=== PATIENT | female | born 1955 | race Caucasian/White ===

== ENCOUNTER → 2017-08-28 | Outpatient (CLI) | payer OTHER ==
[~2017-08-28] MED LIST: ACE3 PO; ACET-1718 PO; ASP325 PO; ASPI-1 PO; CALC600T72 PO; CELE-1 PO; CLOB15CR22 TP; FISH OIL 1,2001 CAP PO; MECL25TA9 PO; METO25TA23 PO; METO50TA19 PO; ONDA4TAB PO; VITAMINS; [UNRECOGNIZED DRUG - OTHER]
--- NOTE | 2017-08-28 13:49 | RADIOLOGY IMAGING REPORT ---
FACILITY: [facility] PATIENT NAME: FEDERICO GIORDANO : [id number] MR: [id number] V: [id number] EXAM DATE: [id number] ORDERING PHYSICIAN: ERIC ALEXANDER TECHNOLOGIST: Becky Ramirez PROCEDURE:BILATERAL DIGITAL SCREENING MAMMOGRAM WITH CAD ASSISTED INTERPRETATION & 3D TOMOSYNTHESIS COMPARISON:Prior mammograms 08/25/16, 08/25/15. INDICATIONS:SCREENING FINDINGS: The breast tissue is heterogeneously dense. There is no dominant mass, suspicious cluster of microcalcifications or persistent areas of architectural distortion. DIAGNOSTIC CATEGORY 1--NEGATIVE. RECOMMENDATIONS: ROUTINE MAMMOGRAM AND CLINICAL EVALUATION IN 1 YEAR. IMPRESSION: BIRADS 1: Negative. Dictated by: Remington Carlos M.D. on 08/28/2017 at 11:47 Transcribed by: LATESHA on 08/28/2017 at 13:00 Approved by: Remington Carlos M.D. on 08/28/2017 at 13:48 [facility]
== END ==
LOC: MAMO 01:47
PROVIDERS: ATTEND Physician Assistant
DX: Z12.31 Encounter for screening mammogram for malignant neoplasm of breast (principal)
CPT/HCPCS: 77063; 77067

== ENCOUNTER → 2017-10-17 | Outpatient (CLI) | payer OTHER ==
--- NOTE | 2017-10-17 11:19 | RADIOLOGY IMAGING REPORT ---
FACILITY: [facility] [place] PATIENT NAME: Radha Lester : 1955 MR: [id number] V: [id number] EXAM DATE: ORDERING PHYSICIAN: ERIC ALEXANDER TECHNOLOGIST: Location: [facility] Patient: Radha Lester : 1955 Visit/Account:[id number] Date of Sevice: 10/17/2017 DEXA Scan Clinical history: Postmenopausal. Comparison: None available. LUMBAR SPINE: The bone mineral density (BMD) measured from L1-L4 correlates with a Z-score 0.4 and a T-score of -1 which is Normal as defined by the World Health Organization. The corresponding risk of fracture in t he lumbar spine is 2 times increased compared with a young adult reference population. HIP: Bone mineral density (BMD) measured in the Left total hip region correlates with a Z-score -1 and a T -score of -2.1 which is osteopenia as defined by the World Health Organization. The corresponding ri sk of fracture in the hip is 4-6 times increased compared with a young adult reference population. T score left femoral neck -2.1 Bone mineral density (BMD) measured in the Femoral Neck region measures 0.753 g/cm2. Impression: 1. Lumbar spine: Normal. 2. Left Hip: Stepanian. 3. Femoral Neck: Bone Mineral Density is 0.753 g/cm2 The next DEXA scan of this patient should include the following sites: L1-L4 and the left hip. FRAX? WHO Fracture Risk Assessment Tool link: <http://www.shef.ac.uk/FRAX/tool.jsp?locationValue=9> PLEASE NOTE: 1) The World Health Organization defines low BMD as follows: T-score Normal > -1 Osteopenia < -1 and > -2.5 Osteoporosis < -2.5 without fractures Established osteoporosis < -2.5 with fractures 2) In general, you may wish to consider: Diagnosis Treatment Follow-up DEXA Normal BMD Prevention 2-3 years Osteopenia Prevention/therapy 1-2 years Osteoporosis Therapy Yearly 3) Fracture risk estimated from the T-score is more accurate for vertebral fractures (often spontane ous) than for hip fractures. Report Dictated By: Marilu Hinton MD at 10/17/2017 11:15 AM Report E-Signed By: Marilu Hinton MD at 10/17/2017 11:16 AM WSN:[email or web address]
== END ==
LOC: RAD 01:27
PROVIDERS: ATTEND Physician Assistant
DX: Z13.820 Encounter for screening for osteoporosis (principal); N95.8 Other specified menopausal and perimenopausal disorders
CPT/HCPCS: 77080

== ENCOUNTER → 2017-12-05 | Outpatient (CLI) | payer OTHER ==
--- NOTE | 2017-12-06 10:48 | RADIOLOGY IMAGING REPORT ---
FACILITY: [facility] PATIENT NAME: FEDERICO GIORDANO : [id number] MR: [id number] V: [id number] EXAM DATE: [id number] ORDERING PHYSICIAN: ALONZO MARQUEZ TECHNOLOGIST: [place] RDMS, STEPHEN PROCEDURE:US LEFT BREAST COMPARISON:Bilateral mammogram 08/28/17. INDICATIONS:MASTODYNIA FINDINGS: The upper portion of the patient's Left breast was imaged from the 9-3 o'clock position revealing no sonographic abnormality to account for patient's Left breast pain. The patient's screening mammogram from 3 months ago was normal. Clinical follow-up recommended for patient's Left breast pain. DIAGNOSTIC CATEGORY 2--BENIGN FINDING. RECOMMENDATIONS: CLINICAL EVALUATION. IMPRESSION: BIRADS 2: Benign finding. Clinical follow-up recommended for patient's Left breast pain with no sonographic correlate. If symptoms do persist an MR of the breast maybe helpful of note the patient did have a negative mammogram 3 month previously. Dictated by: Marilu Hinton M.D. on 12/05/2017 at 14:49 Transcribed by: LATESHA on 12/05/2017 at 15:09 Approved by: Marilu Hinton M.D. on 12/06/2017 at 10:47 [facility]
== END ==
LOC: US 01:24
PROVIDERS: ATTEND Family Medicine
DX: N64.4 Mastodynia (principal)

== ENCOUNTER 2018-03-30 15:09 | Emergency (ER) | payer OTHER ==
[2018-03-30 15:47] LABS: PLATELET COUNT, AUTOMATED 197 K/uL (150-450)
--- NOTE | 2018-03-30 15:55 | ER Report ---
History and Physical Time Seen By MD: 15:20 Hx. of Stated Complaint: PATIENT STATES SHE HAS BEEN EXPRIENCING TINGLING IN HER ARMS AND LEGS FOR THE LAST WEEK, THEN DIZZINESS AT NIGHT. PATIENTS HEART RATE SHE STATES HAS BEEN RACING. HPI/ROS CHIEF COMPLAINT: Paresthesias, lightheadedness HISTORY OF PRESENT ILLNESS: 62-year-old female presents with symptoms that have been ongoing for 3-4 days. Specifically, she has bilateral anterior thigh paresthesias which are worse during the day, improved in the evening, and she d oes not notes during sleep. There are not other clear exacerbating or relieving factors. She does not note that she has had this before. She also notes occasional paresthesias of upper extremities as well. She does not note any clear reason for this. Patient also complains of intermittent lightheadedness during the same time peroid. She does not note any clear association of this with exertion or other activities. Patient has had no chest pain or shortness of breath during this time. She admits that she is concerned about cardiac etiology has a family history, however has had no cardiac symptoms or anginal equivalents. She notes no nausea, vomiting, diarrhea, abdominal pain, fever, chills, change in urination. She has no focal weakness. She has had no change in diet. She does note that when she drinks Gatorade her paresthesias seem to improve. She is on only metoprolol and has not had a change in dose. She denies other medications. She denies tobacco use. She has had a stress test appr oximately 4-5 years ago that was reportedly normal. She has never had a cardiac catheterization or any history of ACS. She was told that she had a fast heart rate which is why she was placed on metoprolol. REVIEW OF SYSTEMS: Constitutional: No fever, no chills. Eyes: no blurred vision ENT: No sore throat. Cardiovascular: No chest pain, no palpitations. Respiratory: No cough, no shortness of breath. Gastrointestinal: No abdominal pain, no vomiting. Genitourinary: no dysuria Musculoskeletal: No back pain. Skin: No rashes. Neurological: No headache. Remainder of the 14 system rev: Yes Allergies: Coded Allergies: erythromycin base (Verified Allergy, Unknown, 03/30/18) EHR CONVERSION Home Meds Reported Medications Metoprolol Succinate (METOPROLOL SUCCINATE) 50 Mg Tab.er.24h, 1 TAB PO QDAY, TAB 06/07/15 Discontinued Reported Medications Clobetasol Propionate/Emoll (CLOBETASOL EMOLLIENT 0.05% CRM) 15 Gm Cream..g., 0 TP BID 10/30/16 Acetaminophen With Codeine # 3 (ACETAMINOPHEN-COD #3 TABLET) 1 Each Tablet, 1 EACH PO Q4-6H, TAB 10/30/16 Calcium Carbonate (Calcium) 600 Mg Tablet, 1200 MG PO BID, 0 Refills 05/04/10 Fish Oil/[place]-3 Fatty Acids (Fish Oil 1,200 Mg Softgel) 1 Cap Capsule, 2 CAP PO BID, 0 Refills 05/04/10 Aspirin/Acetaminophen/Caffeine (Excedrin Caplet) 1 Each Tablet, 1 EACH PO PRN, 0 Refills 05/04/10 Discontinued Scripts Ondansetron (ZOFRAN ODT) 4 Mg Tab.rapdis, 4 MG PO Q6H PRN for NAUSEA/VOMITING, #20 TAB.WES 0 Refills Prov:LINA TODD MD 07/01/16 Meclizine Hcl (MECLIZINE HCL) 25 Mg Tablet, 25 MG PO TID PRN for DIZZINESS, #20 TAB 0 Refills Prov:LINA TODD MD 07/01/16 Hx Smoking: No Smoking Status: Never Smoker Hx Substance Use Disorder: No Hx Alcohol Use: Yes (SOCIALLY) Constitutional Vital Sign - Last 24 Hours 03/30/18 03/30/18 03/30/18 15:16 15:39 15:40 Temp 97.5 Pulse 63 57 Resp 16 13 B/P (MAP) 129/75 116/80 (92) Pulse Ox 96 O2 Delivery Room Air Physical Exam General Appearance: The patient is alert, has no immediate need for airway protection and no signs of toxicity. Eyes: Pupils equal and round no pallor or injection. ENT, Mouth: Mucous membranes are moist. Respiratory: There are no retractions, lungs are clear to auscultation. Cardiovascular: Regular rate and rhythm. no carotid bruits, no m/r/g Gastrointestinal: Abdomen is soft and non tender, no masses, bowel sounds normal. Neurological: alert, oriented, cn ii-xii intact, nl fnf, no ddk, no ataxia, nl sensation throughout, 5/5 ms Skin: Warm and dry, no rashes. Musculoskeletal: Neck is supple non tender. extremities full range of motion, no injury DIFFERENTIAL DIAGNOSIS: After history and physical exam differential diagnosis was considered for [ ] Medical Decision Making Data Points Result Diagram: 03/30/18 1540 03/30/18 1540 Laboratory Hematology Test 03/30/18 15:13 03/30/18 15:40 Urine Color Straw Urine Clarity Clear Urine pH 7.0 pH (4.8-9.5) Urine Specific [place] 1.009 Urine Protein Negative mg/dL (NEGATIVE) Urine Glucose (UA) Negative mg/dL (NEGATIVE) Urine Ketones Negative mg/dL (NEGATIVE) Urine Blood Small (NEGATIVE) Urine Nitrite Negative (NEGATIVE) Urine Bilirubin Negative (NEGATIVE) Urine Urobilinogen Negative mg/dL (0.2-1.9) Urine Leukocyte Esterase Negative (NEGATIVE) Urine RBC 2 /HPF (0-2/HPF) Urine WBC 1 /HPF (0-5/HPF) Urine Squamous Epithelial Cells None /LPF (</=FEW) Urine Bacteria Negative /HPF (NONE-FEW) Urine Mucus None /HPF (NONE-FEW) Red Blood Count 4.66 M/uL (4.17-5.56) Mean Corpuscular Volume 92.9 fL (80.0-96.0) Mean Corpuscular Hemoglobin 31.4 pg (26.0-33.0) Mean Corpuscular Hemoglobin Concent 33.8 g/dL (32.0-36.0) Red Cell Distribution Width 14.4 % (11.5-14.5) Mean Platelet Volume 7.3 fL (7.2-11.1) Neutrophils (%) (Auto) 58.7 % (39.4-72.5) Lymphocytes (%) (Auto) 28.4 % (17.6-49.6) Monocytes (%) (Auto) 9.2 % (4.1-12.4) Eosinophils (%) (Auto) 2.7 % (0.4-6.7) Basophils (%) (Auto) 1.0 % (0.3-1.4) Nucleated RBC Relative Count (auto) 0.0 /100WBC Neutrophils # (Auto) 3.0 K/uL (2.0-7.4) Lymphocytes # (Auto) 1.5 K/uL (1.3-3.6) Monocytes # (Auto) 0.5 K/uL (0.3-1.0) Eosinophils # (Auto) 0.1 K/uL (0.0-0.5) Basophils # (Auto) 0.0 K/uL (0.0-0.1) Nucleated RBC Absolute Count (auto) 0.00 K/uL Sodium Level 140 mmol/L (137-145) Potassium Level 4.0 mmol/L (3.5-5.0) Chloride Level 102 mmol/L (98-107) Carbon Dioxide Level 33 mmol/L (22-31) Blood Urea Nitrogen 23 mg/dl (7-18) Creatinine 1.10 mg/dl (0.52-1.04) Glomerular Filtration Rate Calc 50.5 Random Glucose 79 mg/dl (75-110) Calcium Level 9.5 mg/dl (8.4-10.2) Magnesium Level 2.2 mg/dl (1.7-2.2) Total Bilirubin 0.2 mg/dl (0.2-1.3) Aspartate Amino Transf (AST/SGOT) 29 U/L (0-35) Alanine Aminotransferase (ALT/SGPT) 33 U/L (0-56) Alkaline Phosphatase 48 U/L (0-126) Troponin I < 0.012 ng/ml Total Protein 7.0 g/dl (6.3-8.2) Albumin 4.4 g/dl (3.5-5.0) Chemistry Test 03/30/18 15:13 03/30/18 15:40 Urine Color Straw Urine Clarity Clear Urine pH 7.0 pH (4.8-9.5) Urine Specific [place] 1.009 Urine Protein Negative mg/dL (NEGATIVE) Urine Glucose (UA) Negative mg/dL (NEGATIVE) Urine Ketones Negative mg/dL (NEGATIVE) Urine Blood Small (NEGATIVE) Urine Nitrite Negative (NEGATIVE) Urine Bilirubin Negative (NEGATIVE) Urine Urobilinogen Negative mg/dL (0.2-1.9) Urine Leukocyte Esterase Negative (NEGATIVE) Urine RBC 2 /HPF (0-2/HPF) Urine WBC 1 /HPF (0-5/HPF) Urine Squamous Epithelial Cells None /LPF (</=FEW) Urine Bacteria Negative /HPF (NONE-FEW) Urine Mucus None /HPF (NONE-FEW) White Blood Count 5.1 k/uL (4.5-11.0) Red Blood Count 4.66 M/uL (4.17-5.56) Hemoglobin 14.6 g/dL (12.0-16.0) Hematocrit 43.3 % (34.0-47.0) Mean Corpuscular Volume 92.9 fL (80.0-96.0) Mean Corpuscular Hemoglobin 31.4 pg (26.0-33.0) Mean Corpuscular Hemoglobin Concent 33.8 g/dL (32.0-36.0) Red Cell Distribution Width 14.4 % (11.5-14.5) Platelet Count 197 K/uL (150-450) Mean Platelet Volume 7.3 fL (7.2-11.1) Neutrophils (%) (Auto) 58.7 % (39.4-72.5) Lymphocytes (%) (Auto) 28.4 % (17.6-49.6) Monocytes (%) (Auto) 9.2 % (4.1-12.4) Eosinophils (%) (Auto) 2.7 % (0.4-6.7) Basophils (%) (Auto) 1.0 % (0.3-1.4) Nucleated RBC Relative Count (auto) 0.0 /100WBC Neutrophils # (Auto) 3.0 K/uL (2.0-7.4) Lymphocytes # (Auto) 1.5 K/uL (1.3-3.6) Monocytes # (Auto) 0.5 K/uL (0.3-1.0) Eosinophils # (Auto) 0.1 K/uL (0.0-0.5) Basophils # (Auto) 0.0 K/uL (0.0-0.1) Nucleated RBC Absolute Count (auto) 0.00 K/uL Glomerular Filtration Rate Calc 50.5 Calcium Level 9.5 mg/dl (8.4-10.2) Magnesium Level 2.2 mg/dl (1.7-2.2) Total Bilirubin 0.2 mg/dl (0.2-1.3) Aspartate Amino Transf (AST/SGOT) 29 U/L (0-35) Alanine Aminotransferase (ALT/SGPT) 33 U/L (0-56) Alkaline Phosphatase 48 U/L (0-126) Troponin I < 0.012 ng/ml Total Protein 7.0 g/dl (6.3-8.2) Albumin 4.4 g/dl (3.5-5.0) Urinalysis Test 03/30/18 15:13 Urine Color Straw Urine Clarity Clear Urine pH 7.0 pH (4.8-9.5) Urine Specific [place] 1.009 Urine Protein Negative mg/dL (NEGATIVE) Urine Glucose (UA) Negative mg/dL (NEGATIVE) Urine Ketones Negative mg/dL (NEGATIVE) Urine Blood Small (NEGATIVE) Urine Nitrite Negative (NEGATIVE) Urine Bilirubin Negative (NEGATIVE) Urine Urobilinogen Negative mg/dL (0.2-1.9) Urine Leukocyte Esterase Negative (NEGATIVE) Urine RBC 2 /HPF (0-2/HPF) Urine WBC 1 /HPF (0-5/HPF) Urine Squamous Epithelial Cells None /LPF (</=FEW) Urine Bacteria Negative /HPF (NONE-FEW) Urine Mucus None /HPF (NONE-FEW) EKG/Imaging EKG Interpretation 12 lead EKG: Rhythm: normal sinus rhythm Dendron: normal QRS: normal ST segments: normal NSR, borderline voltage, borderline qrs Monitor Interpretation: Normal Sinus Rhythm ED Course/Re-evaluation ED Course 62-year-old female presents with bilateral paresthesias in the lower extremities. Her symptoms are at L4, however she does not have tenderness on exam or any history of back pain or injury. She has no chest pain or anginal equivalents. Her heart score is 2, so despite her concern about potential cardiac issues she has low likelihood for acute coronary syndrome. After ED evaluation she is very comfortable to go home. As I reviewed her prior records I do note that she has history of observation admission for paresthesias in one leg previously, so at this point I do recommend that her primary doctor order an MRI to rule out MS or other neurologic etiology. Decision to Disposition Date: Mar 30, 2018 Decision to Disposition Time: 16:13 Depart Departure Latest Vital Signs Vital Signs Date Time Temp Pulse Resp B/P (MAP) Pulse Ox O2 Delivery O2 Flow Rate FiO2 03/30/18 15:40 116/80 (92) 03/30/18 15:39 57 13 03/30/18 15:16 97.5 96 Room Air Impression: Primary Impression: Paresthesias Condition: Improved Disposition: HOME OR SELF-CARE Referrals: ALONZO HYMAN MD 5 Days Additional Instructions: Evaluation in the emergency department did not show any emergency cause of your symptoms, however as we discussed, I recommend that you follow-up with her primary doctor in the next 5-7 days for further evaluation. Specifically, because you have had at least 2 episodes of unclear neurologic symptoms, I recommend that he order an MRI of the brain and other studies as he feels necessary. Please return for new weakness, chest pain, shortness breath, or any concerns TRES TADEO MD Mar 30, 2018 15:55
[2018-03-30 16:00] VITALS: BP 107/78
--- NOTE | 2018-03-30 16:14 | RADIOLOGY IMAGING REPORT ---
FACILITY: [facility] [place] PATIENT NAME: Radha Lester : 1955 MR: [id number] V: [id number] EXAM DATE: ORDERING PHYSICIAN: TRES TADEO TECHNOLOGIST: Location: [facility] Patient: Radha Lester : 1955 Visit/Account:[id number] Date of Sevice: 03/30/2018 Technique: CHEST SINGLE AP HISTORY: dyspnea Comparison studies: Chest radiograph July 01, 2016 FINDINGS: The lungs are clear. No pleural effusion or pneumothorax. The cardiac silhouette is unchang ed. IMPRESSION: 1. No acute cardiopulmonary process. Report Dictated By: Delroy Cheema DO at 03/30/2018 4:05 PM Report E-Signed By: Delroy Cheema DO at 03/30/2018 4:10 PM WSN:[id number]
--- NOTE | 2018-03-30 18:35 | EKG ---
FACILITY: [facility] [place] PATIENT NAME: FEDERICO GIORDANO : [id number] MR: [id number] V: [id number] EXAM DATE: ORDERING PHYSICIAN: TRES TADEO TECHNOLOGIST: ELISEO Test Reason : Blood Pressure : / mmHG Vent. Rate : 068 BPM Atrial Rate : 068 BPM P-R Int : 130 ms QRS Dur : 074 ms QT Int : 430 ms P-R-T Axes : 058 005 068 degrees QTc Int : 457 ms Normal sinus rhythm Low voltage QRS Borderline ECG When compared with ECG of 01-JUL-2016 12:56, No significant change was found Confirmed by ALONZO ENGEL ([id number]) on 03/30/2018 7:08:37 PM Referred By: CARLYLE Confirmed By:ALONZO ENGEL
== END 2018-03-30 16:24 | disposition home or self-care (01) ==
LOC: ER 15:17
DX: R20.2 Paresthesia of skin (principal); R06.00 Dyspnea, unspecified
CPT/HCPCS: 71045; 81001; 82040; 82247; 82310; 82374; 82435; 82565; 82947; 83735; 84075; 84132; 84155; 84295; 84450; 84460; 84484; 84520; 85025; 93005; 99284